=== PATIENT | female | born 1985 | race Caucasian/White ===

== ENCOUNTER 2018-01-11 12:48 | Outpatient (CLI) | END 2018-01-11 14:48 | disposition home or self-care (01) ==

== ENCOUNTER 2018-01-13 09:58 | Outpatient (CLI) | END 2018-01-13 12:11 | disposition home or self-care (01) ==

== ENCOUNTER 2018-01-17 17:14 | Outpatient (CLI) | END 2018-01-17 19:34 | disposition home or self-care (01) ==

== ENCOUNTER 2018-01-18 19:48 | Outpatient (CLI) | END 2018-01-18 20:35 | disposition home or self-care (01) ==

== ENCOUNTER 2018-01-24 17:41 | Outpatient (CLI) | END 2018-01-24 20:28 | disposition home or self-care (01) ==

== ENCOUNTER 2018-02-09 23:16 | Inpatient (IN) | END 2018-02-13 00:01 | disposition home or self-care (01) | DRG 798 ==